=== PATIENT | female | born 1975 | race Caucasian/White ===

== ENCOUNTER 2022-05-15 23:28 | Emergency (ER) | payer OTHER ==
[~2022-05-15] VITALS: Ht 170.2 cm; Wt 72.6 kg
--- NOTE | 2022-05-15 23:28 | NUR ---
PT BIB [facility], PREBOOK. TAKEN TO ER CHAIR
[2022-05-15 23:31] VITALS: BP 142/84
--- NOTE | 2022-05-15 23:38 | NUR ---
Patient being evaluated by physician at bedside.
--- NOTE | 2022-05-15 23:51 | NUR ---
PATIENT BIB [facility]. PATIENT EXAMINED BY . PATIENT MEDICALLY CLEARED AND RELEASED IN CUSTODY IN STABLE CONDITION. ORIGINAL PRE-BOOK FORM GIVEN TO OFFICER MELLISSA, #[id number].
== END 2022-05-15 23:51 ==
LOC: MED 23:28
DX: Z02.89 Encounter for other administrative examinations (principal); V49.88XA Car occupant (driver) (passenger) injured in other specified transport accidents, initial encounter; Y93.89 Activity, other specified; Y92.89 Other specified places as the place of occurrence of the external cause; Y99.8 Other external cause status
CPT/HCPCS: 99283